=== PATIENT | male | born 1955 | race African-American/Black ===

== ENCOUNTER → 2020-04-24 | Outpatient (CLI) | payer MEDICARE, OTHER ==
--- NOTE | 2020-04-24 19:58 | Diagnostic Imaging Report ---
CT Lung Screening INDICATION: [id number] smoking history for low dose CT screening TECHNIQUE: Noncontrast, low-dose CT imaging performed according to the lung cancer screening protocol. Auto Exposure Controls were utilize during the CT exam to meet ALARA standards for radiation dose reduction. COMPARISON:Baseline FINDINGS: Symmetrical air trapping and pulmonary hyperinflation present. There are changes of centrilobular emphysema with paraseptal cyst formation greatest at the apices. There is some perihilar cylindrical bronchiectasis greatest in the lower lobes. No suspicious pulmonary nodule or dominant soft tissue mass. Some linear parenchymal bands and areas of subpleural scarring in the right lung base laterally. No findings suggestive of acute pneumonia. There is calcified benign granulomatous disease present. There is no thoracic lymphadenopathy. There is no chest effusion. The aorta is normal in caliber. There is coronary arterial atherosclerotic vascular calcifications. The upper abdomen nonacute. IMPRESSION:No suspicious mass. Continued low-dose CT screening follow-up in one year's time recommended. LUNG-RADS CATEGORY:Category 2 benign findings MODIFIER: None OTHER SIGNIFICANT FINDINGS: Severe COPD and benign granulomatous disease with nonaneurysmal atherosclerotic vascular calcifications. Dictated by: Dictated on workstation # [id number]
== END ==
LOC: RAD 16:15
PROVIDERS: ATTEND Nurse Practitioner Family
DX: Z12.11 Encounter for screening for malignant neoplasm of colon (principal); Z72.0 Tobacco use

== ENCOUNTER → 2021-09-17 | Outpatient (CLI) | payer MEDICARE, OTHER ==
--- NOTE | 2021-09-17 12:36 | Diagnostic Imaging Report ---
CT Lung Screening INDICATION:44 pack year smoking history with COPD and emphysema. History of prostate cancer. TECHNIQUE: Noncontrast, low-dose CT imaging performed according to the lung cancer screening protocol. Auto Exposure Controls were utilize during the CT exam to meet ALARA standards for radiation dose reduction. COMPARISON:04/24/2020 FINDINGS:Severe pulmonary hyperexpansion is a stable symmetrical finding. There is paraseptal and centrilobular emphysematous changes chronic. Areas of subpleural bandlike linear scarring in the bases greater right chronic but increased. There is likely some increased right lower lobe subpleural fibrosis and subjacent partial atelectasis. Calcified benign minna and parenchymal granulomatous residua chronic. No dominant or suspicious noncalcified lung mass. No findings to suggest lung cancer. This patient has a minute right pleural effusion. No pericardial collection. Atherosclerotic vascular disease without aneurysm present. No acute chest wall pathology. The visualized upper abdomen nonacute. IMPRESSION:No findings to suggest active lung cancer. Continued annual low-dose CT screening followup in one year's time recommended. LUNG-RADS CATEGORY:Category 2 MODIFIER:None OTHER SIGNIFICANT FINDINGS:Severe COPD, benign granulomatous disease, nonaneurysmal atherosclerosis. Dictated by: Dictated on workstation # [id number]
== END ==
LOC: RAD 11:45
PROVIDERS: ATTEND Nurse Practitioner Family
DX: Z12.2 Encounter for screening for malignant neoplasm of respiratory organs (principal); J43.9 Emphysema, unspecified; Z87.891 Personal history of nicotine dependence; Z85.46 Personal history of malignant neoplasm of prostate
CPT/HCPCS: 71271